=== PATIENT | female | born 1990 | race Caucasian/White ===

== ENCOUNTER 2019-12-24 17:07 | Emergency (ER) | payer OTHER ==
[~2019-12-24] VITALS: Ht 165.1 cm; Wt 99.0 kg
[2019-12-24 17:29] VITALS: BP 126/64
--- NOTE | 2019-12-24 18:28 | RAD ---
EXAM: 3 Views Right Shoulder DATE: 12/24/2019 5:39 PM INDICATION: Right shoulder pain, injury COMPARISON: No Prior FINDINGS: There is no evidence for acute fracture or dislocation. AC joint is congruent. Humeral head is not high riding. IMPRESSION: 1. No acute fracture or dislocation. Electronically signed by: Noé Slater MD (12/24/2019 6:25 PM) [facility]
--- NOTE | 2019-12-24 18:33 | PHYS DOC ---
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 Patient said the door closed hard on her right shoulder, pinned her right shoulder against between the door and the door frame. Patient her a pop sound from her right shoulder, having pain with movement. No weakness or numbness on her right upper extremity. Review of Systems: Review of Systems: Constitutional: Denies fever or chills Eyes: Denies change in visual acuity HENT: Denies nasal congestion or sore throat Respiratory: Denies cough or shortness of breath Cardiovascular: Denies chest pain or edema GI: Denies abdominal pain, nausea, vomiting, bloody stools or diarrhea : Denies dysuria Musculoskeletal: Denies back pain, positive for right shoulder pain. Integument: Denies rash Neurologic: Denies headache, focal weakness or sensory changes Endocrine: Denies polyuria or polydipsia Lymphatic: Denies swollen glands Psychiatric: Denies depression or anxiety Heart Score: Risk Factors: Risk Factors: DM, Current or recent (<one month) smoker, HTN, HLP, family history of CAD, obesity. Risk Scores: Score 0 - 3: 2.5% MACE over next 6 weeks - Discharge Home Score 4 - 6: 20.3% MACE over next 6 weeks - Admit for Clinical Observation Score 7 - 10: 72.7% MACE over next 6 weeks - Early Invasive Strategies Allergies: Allergies: Allergies Coded Allergies Type Severity Reaction Last Updated Verified Penicillins Allergy Mild 12/24/19 Yes Physical Exam: PE: Constitutional: Well developed, well nourished, no acute distress, non-toxic appearance. [] HENT: Normocephalic, atraumatic, bilateral external ears normal, oropharynx moist, no oral exudates, nose normal. [] Eyes: PERRLA, EOMI, conjunctiva normal, no discharge. [] Neck: Normal range of motion, no tenderness, supple, no stridor. [] Cardiovascular:Heart rate regular rhythm, no murmur [] Lungs & Thorax: Bilateral breath sounds clear to auscultation [] Abdomen: Bowel sounds normal, soft, no tenderness, no masses, no pulsatile masses. [] Skin: Warm, dry, no erythema, no rash. [] Back: No tenderness, no CVA tenderness. [] Extremities: right shoulder is tender to palpation, no deformity noted, patient can move her right shoulder in all directions only with pain. Neurologic: Alert and oriented X 3, normal motor function, normal sensory function, no focal deficits noted. [] Psychologic: Affect normal, judgement normal, mood normal. [] Current Patient Data: Vital Signs: Vital Signs Date Time Temp Pulse Resp B/P (MAP) Pulse Ox O2 Delivery O2 Flow Rate FiO2 12/24/19 17:29 97.5 93 18 126/64 (84) 96 Room Air EKG: EKG: [] Radiology/Procedures: Radiology/Procedures: [][address] [address] IMAGING REPORT Signed PATIENT: EROS SALAZAR SACCOUNT: [id number] : 1990 LOCATION: ER AGE: 29 SEX: F EXAM STATUS: REG ER ORD. PHYSICIAN: KELLY RODRIGUEZ DO REASON: pain, injury PROCEDURE: SHOULDER 2+V RIGHT EXAM: 3 Views Right Shoulder DATE: 12/24/2019 5:39 PM INDICATION: Right shoulder pain, injury COMPARISON: No Prior FINDINGS: There is no evidence for acute fracture or dislocation. AC joint is congruent. Humeral head is not high riding. IMPRESSION: 1. No acute fracture or dislocation. Electronically signed by: Noé Aguilera MD (12/24/2019 6:25 PM) [facility] DICTATED AND SIGNED BY: NOÉ AGUILERA MD DATE: 12/24/19 1825 CC: KELLY RODRIGUEZ DO; PCP,NO; RAYMUNDO ROCHA DO ~ Course & Med Decision Making: Course & Med Decision Making Pertinent Labs and Imaging studies reviewed. (See chart for details) Patient is a 29-year-old female who was evaluated in the ER due to shoulder injury, x-ray of her shoulder did not show any dislocation or fracture. Patient was placed on a sling, discharge home follow-up with her doctor for MRI of her right shoulder if she is continuing to have pain. Dragon Disclaimer: Dragon Disclaimer: This electronic medical record was generated, in whole or in part, using a voice recognition dictation system. Departure Departure: Impression: Primary Impression: Right shoulder injury Disposition: 01 HOME/RESIDENCE PRIOR TO ADM Condition: STABLE Referrals: PCP,NO (PCP) please follow up with your workman comp doctor for further evaluation with MRI of your right shoulder if you are not improving in a week Patient Instructions: Contusions-SportsMed, Sling Use After Injury or Surgery Additional Instructions: take Ibuprofen or tylenol as needed for pain. Justification of Admission: Justification of Admission: Justification of Admission Dx: N/A RAYMUNDO ROCHA DO Dec 24, 2019 18:33
== END 2019-12-24 19:00 | disposition home or self-care (01) ==
LOC: ER 17:07
DX: S49.91XA Unspecified injury of right shoulder and upper arm, initial encounter (principal); Z88.0 Allergy status to penicillin; W23.0XXA Caught, crushed, jammed, or pinched between moving objects, initial encounter; Y93.89 Activity, other specified; Y92.89 Other specified places as the place of occurrence of the external cause; Y99.0 Civilian activity done for income or pay
CPT/HCPCS: 73030; 99283